=== PATIENT | female | born 1980 | race Two or more races ===

== ENCOUNTER 2021-03-26 08:30 | Inpatient (IN) | payer OTHER ==
[~2021-03-26] VITALS: Ht 162.6 cm; Wt 3.2 kg
[2021-03-31] MEDS ORDERED: PRENATAL CAPLE1 EAC1 PO (06:17)
[2021-03-31] MEDS ORDERED: IRON325 MG PO (06:17)
== END 2021-04-03 14:24 | disposition home or self-care (01) | DRG 785 ==
LOC: EDSTATUS 08:30 → ADM 08:30 → OB/GYN 03-31 05:45 → O/R 03-31 05:45 → LDR 03-31 08:30 → OB/GYN 03-31 13:34
PROVIDERS: ADMIT Obstetrics & Gynecology; ATTEND Obstetrics & Gynecology
PROC: 0UT70ZZ Resection of Bilateral Fallopian Tubes, Open Approach (ICD-10-PCS; 2021-03-31)
PROC: 4A1HXCZ Monitoring of Products of Conception, Cardiac Rate, External Approach (ICD-10-PCS; 2021-03-31)
PROC: 10D00Z1 Extraction of Products of Conception, Low, Open Approach (ICD-10-PCS; principal; 2021-03-31 10:00)
DX: O34.211 Maternal care for low transverse scar from previous cesarean delivery (principal); Z3A.39 39 weeks gestation of pregnancy; Z37.0 Single live birth; Z30.2 Encounter for sterilization; Z20.822 Contact with and (suspected) exposure to COVID-19